=== PATIENT | female | born 1985 | race Caucasian/White ===

== ENCOUNTER → 2016-09-29 | Outpatient (CLI) | payer OTHER ==
[2016-09-29 17:31] LABS: CHCM 34.3; HCT 38.5 % (34.0-46.0); HDW 2.59; HGB 12.8 gm/dL (11.4-16.0); MCH 32.1 pg (25.0-35.0); MCHC 33.2 g/dL (31.0-37.0); MCV 96.7 fL (80.0-100.0); Mean Platelet Volume 6.8; RBC 3.98 m/uL (3.80-5.40); RDW 13.6 % (11.5-15.5); WBC 13.6 k/uL (3.8-10.6)
[2016-09-29 17:40] LABS: Glucose 88 mg/dL (74-99); Non-African American GFR(MDRD) >60 (>60 ml/min/1.73 sqM)
[2016-09-29 18:12] LABS: Hepatitis B Surface Ag Index 0.05
== END | disposition home or self-care (01) ==
LOC: LABWHC1 16:58
PROVIDERS: ATTEND Obstetrics & Gynecology
DX: Z34.01 Encounter for supervision of normal first pregnancy, first trimester (principal); Z3A.00 Weeks of gestation of pregnancy not specified
CPT/HCPCS: 36415; 82565; 82947; 85027; 86762; 86780; 86850; 86870; 86880; 86886; 86900; 86901; 87340

== ENCOUNTER → 2016-12-31 | Outpatient (CLI) | payer OTHER ==
[2016-12-31 09:26] LABS: CH 33.1; CHCM 34.3; HCT 36.1 % (34.0-46.0); HDW 2.55; HGB 12.7 gm/dL (11.4-16.0); MCH 34.2 pg (25.0-35.0); MCHC 35.2 g/dL (31.0-37.0); MCV 97.1 fL (80.0-100.0); Mean Platelet Volume 7.3; RBC 3.72 m/uL (3.80-5.40); RDW 13.4 % (11.5-15.5); WBC 14.3 k/uL (3.8-10.6)
== END | disposition home or self-care (01) ==
LOC: LABWHC1 07:29
PROVIDERS: ATTEND Obstetrics & Gynecology
DX: Z34.82 Encounter for supervision of other normal pregnancy, second trimester (principal)
CPT/HCPCS: 36415; 82950; 85027; 86850

== ENCOUNTER → 2019-11-08 | Outpatient (CLI) | payer OTHER ==
[2019-11-08 10:23] LABS: HCT 38.7 % (34.0-46.0); HGB 12.5 gm/dL (11.4-16.0); MCH 32.1 pg (25.0-35.0); MCHC 32.4 g/dL (31.0-37.0); MCV 99.1 fL (80.0-100.0); Mean Platelet Volume 7.4; Platelet Count 225 k/uL (150-450); RDW 13.4 % (11.5-15.5); WBC 14.7 k/uL (3.8-10.6)
== END | disposition home or self-care (01) ==
LOC: LABWHC1 08:31
PROVIDERS: ATTEND Obstetrics & Gynecology
DX: Z34.82 Encounter for supervision of other normal pregnancy, second trimester (principal)
CPT/HCPCS: 36415; 82950; 85027; 86850

== ENCOUNTER 2020-02-16 03:06 | Inpatient (IN) | payer OTHER ==
[2020-02-16] MEDS ORDERED: CARBOPROST TROMETHAMINE 250 MCG/ML 1 ML AMP IM PRN (03:49)
[2020-02-16] MEDS ORDERED: METHYLERGONOVINE 0.2 MG/ML 1 ML AMP IM PRN (03:49)
[2020-02-16] MEDS ORDERED: TERBUTALINE 1 MG/ML VIAL SQ PRN (03:49)
[2020-02-16] MEDS ORDERED: OXYTOCIN 10 UNIT/ML 1 ML VIAL IM PRN (03:49)
[2020-02-16] MEDS ORDERED: LIDOCAINE 0.5% (PF) 5 MG/ML (50 ML SDV) SQ PRN (03:49)
[2020-02-16 04:00] LABS: Basophils # (A) 0.1 k/uL (0-0.2); Basophils % (A) 0 %; Eosinophils # (A) 0.2 k/uL (0-0.7); Eosinophils % (A) 1 %; HCT 41.7 % (34.0-46.0); HGB 14.1 gm/dL (11.4-16.0); Lymphocytes # (A) 1.7 k/uL (1.0-4.8); Lymphocytes % (A) 12 %; MCH 32.3 pg (25.0-35.0); MCHC 33.8 g/dL (31.0-37.0); MCV 95.7 fL (80.0-100.0); Monocytes # (A) 0.5 k/uL (0-1.0); Monocytes % (A) 3 %; Neutrophils # (A) 12.3 k/uL (1.3-7.7); Neutrophils % (A) 82 %; Platelet Count 224 k/uL (150-450); RBC 4.36 m/uL (3.80-5.40); RDW 13.7 % (11.5-15.5); WBC 14.9 k/uL (3.8-10.6)
[2020-02-16] MEDS: LACTATED RINGERS 1,000 ML IV SCH ×2 (04:00→05:30)
[2020-02-16] MEDS ORDERED: OXYTOCIN 20 UNITS/1000 ML NS 1,000 ML IV SCH (07:00)
[2020-02-16] MEDS ORDERED: BENZOCAINE/MENTHOL SPRAY 1 GM/SPRAY AEROSOL TOPICAL PRN (07:00)
[2020-02-16] MEDS ORDERED: diphenhydrAMINE 50 MG/ML 1 ML VIAL IVP PRN ×2 (07:00)
[2020-02-16] MEDS ORDERED: diphenhydrAMINE 50 MG CAP PO PRN (07:00)
[2020-02-16] MEDS ORDERED: SIMETHICONE 80 MG CHEWABLE PO PRN (07:00)
[2020-02-16] MEDS ORDERED: LANOLIN CREAM 5 GM TUBE TOPICAL PRN (07:00)
[2020-02-16] MEDS ORDERED: ACETAMINOPHEN TAB 325 MG TAB PO PRN (07:00)
[2020-02-16] MEDS ORDERED: ZOLPIDEM 5 MG TAB PO PRN (07:00)
[2020-02-16] MEDS ORDERED: diphenhydrAMINE 25 MG CAP PO PRN (07:00)
[2020-02-16] MEDS ORDERED: HYDROCORTISONE 2.5% RECTAL CREAM 30 GM TUBE RECTAL PRN (07:00)
[2020-02-16] MEDS ORDERED: Rhogam IMMUNE GLOBULIN 1,500 UNIT/1 ML IM ONE (07:00)
--- NOTE | 2020-02-16 07:09 | P.HPOB ---
History of Present Illness H&P Date: 02/16/20 Chief Complaint: Labor 34-year-old presented at 39 weeks and 4 days in active labor. Her cervix was 6 cm dilated, 70% effaced, -2 station. She is bao every 3 minutes. heart tones 135 with moderate variability and reactive. Review of Systems All systems: negative Constitutional: Denies chills, Denies fever Eyes: denies blurred vision, denies pain Ears, nose, mouth and throat: Denies headache, Denies sore throat Cardiovascular: Denies chest pain, Denies shortness of breath Respiratory: Denies cough Gastrointestinal: Denies abdominal pain, Denies diarrhea, Denies nausea, Denies vomiting Genitourinary: Denies dysuria, Denies hematuria Musculoskeletal: Denies myalgias Integumentary: Denies pruritus, Denies rash Neurological: Denies numbness, Denies weakness Psychiatric: Denies anxiety, Denies depression Endocrine: Denies fatigue, Denies weight change Past Medical History Past Medical History: No Reported History Additional Past Medical History / Comment(s): Obstetric history: First was a vaginal delivery. This is her second and she's had care with Dr. Jimenez. Blood type is A-, amylase negative, rubella immune, hepatitis B negative, RPR nonreactive, GBS negative. She did receive RhoGAM on 11/28/2019. History of Any Multi-Drug Resistant Organisms: None Reported Additional Past Surgical History / Comment(s): Kidney surgery at age 4. Past Anesthesia/Blood Transfusion Reactions: No Reported Reaction Smoking Status: Never smoker - Past Family History Mother Family Medical History: Cancer Additional Family Medical History / Comment(s): breast cancer Medications and Allergies Home Medications Medication Instructions Recorded Confirmed Type Pnv No.95/Ferrous Fum/Folic AC 1 tab PO DAILY 04/20/17 04/20/17 History [ Multivitamin Tablet] Allergies Allergy/AdvReac Type Severity Reaction Status Date / Time Penicillins AdvReac Rash/Hives Verified 02/16/20 03:16 Exam Osteopathic Statement: *. No significant issues noted on an osteopathic structural exam other than those noted in the History and Physical/Consult. Intake and Output 02/15/20 02/16/20 02/16/20 22:59 06:59 14:59 Other: Weight 75.75 kg Heart: Regular rate and rhythm Lungs: Clear to auscultation bilaterally Abdomen: Soft, nontender Extremities: Negative Homans sign Results Result Diagrams: 02/16/20 03:45 Abnormal Lab Results - Last 24 Hours (Table) 02/16/20 Range/Units 03:45 WBC 14.9 H (3.8-10.6) k/uL Neutrophils # 12.3 H (1.3-7.7) k/uL Assessment and Plan (1) Normal labor Current Visit: Yes Status: Acute Code(s): O80 - ENCOUNTER FOR FULL-TERM UNCOMPLICATED DELIVERY; Z37.9 - OUTCOME OF DELIVERY, UNSPECIFIED SNOMED Code(s): 85230576 Plan: 1. Admit to family place 2. Expectant management 3. Anticipate normal vaginal delivery
--- NOTE | 2020-02-16 07:11 | P.PROBDLV ---
Vaginal Delivery Note - . Vaginal Delivery Note: 34-year-old presented at 39 weeks and 4 days in active labor. Her cervix was 6 cm dilated, 70% effaced, -2 station. She is bao every 3 minutes. heart tones 135 with moderate variability and reactive. Amniotomy was performed at about 4:30 in the morning when she was 8 cm and clear fluid was noted. Her cervix is completely dilated at 6:03 AM. She pushed, and delivered a viable male over intact perineum at 633. Head delivered OA, anterior shoulder delivered gentle downward guidance. The posterior shoulder and rest of body. Nose and mouth bulb suctioned, cord clamped and cut, infant placed on mother's abdomen. Apgars 9, 9, weight 8 lbs. 7 oz. Placenta delivered spontaneously, intact with three-vessel cord at 637. Vagina, cervix, and perineum were inspected. Second-degree midline laceration was repaired with 3-0 Vicryl. Estimated blood loss 300 mL. Mother and baby in stable condition.
[2020-02-16] MEDS: IBUPROFEN 600 MG TAB PO PRN ×3 (08:16→23:12)
[2020-02-16] MEDS: SENNOSIDES-DOCUSATE SODIUM 1 EACH TAB PO SCH ×2 (08:19→19:41)
[2020-02-17 05:53] LABS: Basophils % (A) 0 %; Eosinophils # (A) 0.1 k/uL (0-0.7); Eosinophils % (A) 1 %; HCT 35.5 % (34.0-46.0); HGB 11.7 gm/dL (11.4-16.0); Lymphocytes # (A) 2.6 k/uL (1.0-4.8); Lymphocytes % (A) 16 %; MCH 32.5 pg (25.0-35.0); MCHC 33.1 g/dL (31.0-37.0); MCV 98.4 fL (80.0-100.0); Monocytes # (A) 0.7 k/uL (0-1.0); Monocytes % (A) 4 %; Neutrophils # (A) 12.2 k/uL (1.3-7.7); Neutrophils % (A) 77 %; Platelet Count 205 k/uL (150-450); RBC 3.61 m/uL (3.80-5.40); RDW 13.8 % (11.5-15.5); WBC 15.7 k/uL (3.8-10.6)
--- NOTE | 2020-02-17 06:02 | P.PNOBGVD ---
Subjective - Subjective Patient reports: Reports appetite normal, Reports voiding normally, Reports pain well controlled, Reports ambulating normally : doing well Objective - Latest Vital Signs Latest vital signs: Vital Signs Temp Pulse Resp BP Pulse Ox 02/16/20 23:22 98.1 F 63 16 116/66 98 02/16/20 16:00 98.2 F 67 14 114/72 02/16/20 12:00 98.3 F 62 16 109/66 02/16/20 08:45 98.2 F 62 16 102/59 02/16/20 08:15 77 14 98/57 02/16/20 07:45 98.4 F 81 14 98/56 02/16/20 07:30 83 16 99/53 02/16/20 07:15 76 14 98/52 02/16/20 07:00 68 97/49 02/16/20 06:45 98.4 F 94 16 93/61 Intake and Output 02/16/20 02/16/20 02/17/20 14:59 22:59 06:59 Other: # Voids 1 1 1 - Exam Lungs: bilateral: normal Chest: Normal S1, Normal S2 Extremities: Present: normal Abdomen: Present: normal appearance, soft Uterus: Present: normal, firm - Labs Labs: Abnormal Lab Results - Last 24 Hours (Table) 02/17/20 Range/Units 04:58 WBC 15.7 H (3.8-10.6) k/uL RBC 3.61 L (3.80-5.40) m/uL Neutrophils # 12.2 H (1.3-7.7) k/uL Assessment and Plan Assessment: day #1. Patient is resting without complaints and wishes to go home. Vital signs are stable she is afebrile. Uterus is firm nontender and she is having normal lochia. My impression this is a normal course. Plan is to continue routine care and discharge home later today. (1) Normal labor Current Visit: Yes Status: Acute Code(s): O80 - ENCOUNTER FOR FULL-TERM UNCOMPLICATED DELIVERY; Z37.9 - OUTCOME OF DELIVERY, UNSPECIFIED SNOMED Code(s): 73381781
--- NOTE | 2020-02-17 06:04 | P.DS ---
Providers Date of admission: 02/16/20 03:29 Expected date of discharge: 02/17/20 Attending physician: Ilan Jimenez Primary care physician: Stated None - Discharge Diagnosis(es) (1) Normal labor Current Visit: Yes Status: Acute Hospital Course: Please see dictated H&P for intimate details of this patient's admission. Brief summary is a pleasant 34-year-old 2 para 1 female 39-4/7 weeks who presented to labor and delivery with complaint of contractions found to be in active labor. Patient was on have a vaginal delivery viable male . Pl ease see dictated delivery note. day #1 patient without complaints and wishes to go home. Patient's felt be stable for discharge home follow up with me in 6 weeks. Procedures: Normal spontaneous vaginal delivery Patient Condition at Discharge: Good Plan - Discharge Summary New Discharge Prescriptions: New Ibuprofen [Motrin] 600 mg PO Q6HR PRN #40 tab PRN Reason: Mild Pain Or Fever >= 100.5 No Action Pnv No.95/Ferrous Fum/Folic AC [ Multivitamin Tablet] 1 tab PO DAILY Discharge Medication List Pnv No.95/Ferrous Fum/Folic AC [ Multivitamin Tablet] 1 tab PO DAILY 04/20/17 [History] Ibuprofen [Motrin] 600 mg PO Q6HR PRN #40 tab 02/17/20 [Rx] Follow up Appointment(s)/Referral(s): Ilan Jimenez MD [STAFF PHYSICIAN] - 1 Week Patient Instructions/Handouts: Vaginal Delivery (DC) Activity/Diet/Wound Care/Special Instructions: No intercourse or anything per vagina for 6 weeks. Please call if any fever, chills, excessive vaginal bleeding, and/or abdominal pain. Discharge Disposition: HOME SELF-CARE
--- NOTE | 2020-02-17 07:48 | P.MSEPDOC ---
Presenting Problems - Arrival Data Date of Arrival on Unit: 02/16/20 Time of Arrival on Unit: 03:00 Mode of Transport: Wheelchair - Complaint OB-Reason for Admission/Chief Complaint: Possible Onset of Labor Medical History - Information : 2 Para: 1 Term: 1 : 0 Abortions: Spontaneous or Elective: 0 Number of Living Children: 1 - Gestational Age Gestational Age by TREVOR (wks/days): 39 Weeks and 4 Days Review of Systems - Review of Systems Constitutional: No problems Breast: No problems ENT: No problems Cardiovascular: No problems Respiratory: No problems Gastrointestinal: No problems Genitourinary: No problems Musculoskeletal: No problems Neurological: No problems Skin: No problems Vital Signs - Temperature Temperature: 98.1 F Temperature Source: Oral - Pulse Right Pulse Rate: 63 Pulse Assessment Method: Automatic Cuff - Respirations Respiratory Rate: 16 Oxygen Delivery Method: Room Air O2 Sat by Pulse Oximetry: 98 - Blood Pressure Right Arm Blood Pressure: 116/66 Blood Pressure Mean: 82 Blood Pressure Source: Automatic Cuff Medical Screen Scoring (Pre) - Cervical Exam Dilation: 4-7 cm = 2 Effacement: More than 50% = 2 Membranes: Intact - Uterine Contractions Frequency: N/A Duration: > 40 seconds = 2 Intensity: Contraction palpated strong = 1 - Maternal Vital Signs Maternal Temperature: N/A Maternal Blood Pressure: N/A Signs of Preeclampsia: N/A Maternal Respirations: N/A - Maternal Trauma Maternal Trauma: N/A - Assessment - Baby A Baseline FHR: 135 Heart Rate - NICHD Category: Category I (Normal) = 0 NST: Reactive Position: N/A Station: N/A - Total Score - Baby A Total Score - Baby A: 7 - Total Score - Baby B Total Score - Baby B: 7 - Total Score - Baby C Total Score - Baby C: 7 - Level of Risk - Baby A Level of Risk - Baby A: Medium (6-9) - Level of Risk - Baby B Level of Risk - Baby B: Medium (6-9) - Level of Risk - Baby C Level of Risk - Baby C: Medium (6-9) Physician Notification (Pre) - Physician Notified Physician Notified Date: 02/16/20 Physician Notified Time: 03:25 New Order Received: Yes - Notification Comment Comment: Admit pt for labor, MD will be coming in, in an hour Disposition - Disposition OB Disposition: Admit, LDRP Suite Transferred to:: Inpatient I agree with the RN Medical Screening Exam: Yes Risk & Benefit of care provided described in d/c instruction: Yes Diagnosis: ENCOUNTER FOR FULL-TERM UNCOMPLICATED DELIVERY
[2020-02-17 08:32] VITALS: BP 104/62; PULSE 81; RESP 40; TEMP 97.6
[2020-02-17] MEDS: IBUPROFEN 600 MG TAB PO PRN (08:44)
== END 2020-02-17 09:30 | disposition home or self-care (01) | DRG 807 ==
LOC: FBPOP 03:06 → 4FBP 03:29
PROVIDERS: ADMIT Obstetrics & Gynecology; ATTEND Obstetrics & Gynecology
PROC: 10E0XZZ Delivery of Products of Conception, External Approach (ICD-10-PCS; principal; 2020-02-16)
PROC: 0KQM0ZZ Repair Perineum Muscle, Open Approach (ICD-10-PCS; 2020-02-16)
PROC: 10907ZC Drainage of Amniotic Fluid, Therapeutic from Products of Conception, Via Natural or Artificial Opening (ICD-10-PCS; 2020-02-16)
DX: O70.1 Second degree perineal laceration during delivery (principal); Z37.0 Single live birth; Z3A.39 39 weeks gestation of pregnancy; Z80.3 Family history of malignant neoplasm of breast
CPT/HCPCS: 59025; 85025; 86850; 86900; 86901; 99213

== ENCOUNTER → 2022-03-14 | Outpatient (CLI) | payer BC ==
--- NOTE | 2022-03-15 09:27 | MM ---
Reason for Exam: Screening (asymptomatic). Baseline mammogram. Patient History: Menarche at age 16. First Full-Term at age 31. Currently using Hormonal Contraceptives, beginning at age 30 for 4 years. Maternal cousin (lila) had breast cancer, age 45. Mother had breast cancer, left, age 38. Last menstrual period: 03/08/2022 Prior Study Comparison: Patient's first Mammogram. No prior studies available for comparison. Tissue Density: The breast tissue is extremely dense which could obscure a lesion on mammography. Findings: Analyzed By CAD. There is no suspicious group of microcalcifications or suspicious mass in either breast. Overall Assessment: Negative, BI-RAD 1 Management: Screening Mammogram of both breasts in 1 year. A clinical breast exam by your physician is recommended on an annual basis and results should be correlated with mammographic findings. Electronically signed and approved by: Jacky Bird D.O.
== END | disposition home or self-care (01) ==
LOC: RADMAMWWP 16:30
PROVIDERS: ATTEND Obstetrics & Gynecology
DX: Z12.31 Encounter for screening mammogram for malignant neoplasm of breast (principal); Z80.3 Family history of malignant neoplasm of breast
CPT/HCPCS: 77063; 77067

== ENCOUNTER → 2023-04-18 | Outpatient (CLI) | payer BC ==
--- NOTE | 2023-04-19 13:28 | MM ---
Reason for Exam: Additional evaluation requested from abnormal screening. Last screening mammogram was performed less than 1 month ago. Patient History: Menarche at age 16. First Full-Term at age 31. Hormonal Contraceptives for 4 years from age 30 until age 36. Maternal cousin (lila) had breast cancer, age 45. Mother had breast cancer, left, age 38. Risk Values: Alize 5 year model risk: 0.5%. NCI Lifetime model risk: 17.6%. Prior Study Comparison: 03/14/2022 Bilateral MG 3D screening mammo w/cad, [facility]. 04/05/2023 Bilateral MG 3D screening mammo w/cad, [facility]. Tissue Density: Right: The breast tissue is heterogeneously dense. This may lower the sensitivity of mammography. Findings: Analyzed By CAD. Asymmetric density does not persist. Precautionary 6 month follow-up of the right breast is recommended. Overall Assessment: Probably benign, BI-RAD 3 Management: Diagnostic Mammogram of the right breast in 6 months. . Results were given to the patient verbally at the time of exam. Patient should continue monthly self-breast exams. A clinical breast exam by your physician is recommended on an annual basis. This exam should not preclude additional follow-up of suspicious palpable abnormalities. Note on Alize scores and lifetime risk: 1. A Alize score greater than 3% is considered moderate risk. If this is the case, consider specialist referral to assess eligibility for a risk reducing agent. 2. If overall lifetime risk for the development of breast cancer is 20% or higher, the patient may qualify for future screening with alternating mammogram and breast MRI. Electronically signed and approved by: Flo Rubin M.D. Radiologis
== END | disposition home or self-care (01) ==
LOC: RADMAMWWP 13:38
PROVIDERS: ATTEND Obstetrics & Gynecology
DX: R92.331 Mammographic heterogeneous density, right breast (principal); Z80.3 Family history of malignant neoplasm of breast
CPT/HCPCS: 77061; 77065

== ENCOUNTER → 2023-11-21 | Outpatient (CLI) | payer BC ==
--- NOTE | 2023-11-21 09:45 | MM ---
Reason for Exam: Follow-up at short interval from prior study. Last screening mammogram was performed 7 month(s) ago. Patient History: Menarche at age 16. First Full-Term at age 31. Hormonal Contraceptives for 4 years from age 30 until age 36. Maternal cousin (lila) had breast cancer, age 45. Mother had breast cancer, left, age 38. Risk Values: Alize 5 year model risk: 0.6%. NCI Lifetime model risk: 17.6%. Prior Study Comparison: 03/14/2022 Bilateral MG 3D screening mammo w/cad, [facility]. 04/05/2023 Bilateral MG 3D screening mammo w/cad, [facility]. 04/18/2023 Right MG 3D work up w/cad RT, [facility]. Tissue Density: Right: The breasts are heterogeneously dense, which may obscure small masses. Findings: Analyzed By CAD. The previous questioned asymmetric density central posterior MLO view is not well demonstrated on the present exam. There are some faint regional calcifications centrally in the breast which may be slightly increased. On magnification views, one of these appears punctate while a couple appear to layer on the spot mag lateral view suggesting a benign etiology. Additional short interval follow-up recommended. Overall Assessment: Probably benign, BI-RAD 3 Management: Diagnostic Mammogram of both breasts in 6 months. Total one-year follow-up right breast and annual exam of the left breast. Results were given to the patient verbally at the time of exam. Patient should continue monthly self-breast exams. A clinical breast exam by your physician is recommended on an annual basis. This exam should not preclude additional follow-up of suspicious palpable abnormalities. Note on Alize scores and lifetime risk: 1. A Alize score greater than 3% is considered moderate risk. If this is the case, consider specialist referral to assess eligibility for a risk reducing agent. 2. If overall lifetime risk for the development of breast cancer is 20% or higher, the patient may qualify for future screening with alternating mammogram and breast MRI. Electronically signed and approved by: Justa Corbin M.D. Radiologist
== END | disposition home or self-care (01) ==
LOC: RADMAMWWP 09:09
PROVIDERS: ATTEND Obstetrics & Gynecology
DX: R92.8 Other abnormal and inconclusive findings on diagnostic imaging of breast (principal); R92.331 Mammographic heterogeneous density, right breast; R92.1 Mammographic calcification found on diagnostic imaging of breast; Z80.3 Family history of malignant neoplasm of breast
CPT/HCPCS: 77061; 77065

== ENCOUNTER → 2024-07-15 | Outpatient (CLI) | payer BC | END | disposition home or self-care (01) | LOC: LABWHC1 15:40 | PROVIDERS: ATTEND Obstetrics & Gynecology | DX: O20.0 Threatened abortion (principal); Z3A.00 Weeks of gestation of pregnancy not specified | CPT/HCPCS: 36415; 84702 ==

== ENCOUNTER → 2024-07-22 | Outpatient (CLI) | payer BC | END | disposition home or self-care (01) | LOC: LABWHC1 15:48 | PROVIDERS: ATTEND Obstetrics & Gynecology | DX: O03.9 Complete or unspecified spontaneous abortion without complication (principal) | CPT/HCPCS: 36415; 84702 ==